=== PATIENT | female | born 1975 | race Caucasian/White ===

== ENCOUNTER 2016-12-01 17:17 | Inpatient (IN) | payer MEDICARE ==
[2016-12-01 18:31] LABS: ABSOLUTE LYMPHOCYTES (AUTO) 0.6 10^3/uL (0.5-4.7); ABSOLUTE MONOCYTES (AUTO) 0.6 10^3/uL (0.1-1.4); ABSOLUTE NEUT (AUTO) 9.7 10^3/uL (1.7-8.2); BASOPHILS % (AUTO) 0.3 % (0-2); HEMATOCRIT 35.2 % (36.0-47.0); HEMOGLOBIN 11.4 g/dL (12.0-15.5); LYMPHOCYTES % (AUTO) 5.1 % (13-45); MEAN CORPUSCULAR HEMOGLOBIN 25.9 pg (27.0-33.4); MEAN CORPUSCULAR HGB CONC 32.5 g/dL (32.0-36.0); MEAN CORPUSCULAR VOLUME 80 fl (80-97); MONOCYTES % (AUTO) 5.7 % (3-13); RED BLOOD COUNT 4.42 10^6/uL (3.72-5.28); RED CELL DISTRIBUTION WIDTH 17.1 % (11.5-14.0); SEGMENTED NEUTROPHILS % (AUTO) 88.9 % (42-78); WHITE BLOOD COUNT 10.9 10^3/uL (4.0-10.5)
[2016-12-01 18:36] LABS: ALANINE AMINOTRANSFERASE 37 U/L (9-52); ALBUMIN 4.1 g/dL (3.5-5.0); ALKALINE PHOSPHATASE 78 U/L (38-126); ANION GAP 13 (5-19); ASPARTATE AMINO TRANSFERASE 32 U/L (14-36); BILIRUBIN,TOTAL 0.5 mg/dL (0.2-1.3); BLOOD UREA NITROGEN 18 mg/dL (7-20); CALCIUM 9.5 mg/dL (8.4-10.2); CARBON DIOXIDE 25 mmol/L (22-30); CHLORIDE 108 mmol/L (98-107); CREATININE RESULT 0.58 mg/dL (0.52-1.25); GLUCOSE 128 mg/dL (75-110); SODIUM 145.7 mmol/L (137-145); TOTAL PROTEIN 7.1 g/dL (6.3-8.2)
[2016-12-01 18:37] LABS: ALCOHOL < 10 mg/dL (NONE DETECTED)
[2016-12-01 18:52] LABS: FREE T3 3.12 pg/mL (2.77-5.27)
[2016-12-01] MEDS ORDERED: RINGERS SOLUTION,LACTATED 1,000 ML IV PRN (19:00)
[2016-12-01 19:06] LABS: THYROID STIMULATING HORMONE 0.52 uIU/mL (0.47-4.68)
[2016-12-01 19:11] LABS: APPEARANCE,URINE SLIGHTLY-CLOUDY; BILIRUBIN,URINE NEGATIVE (NEGATIVE); GLUCOSE, URINE NEGATIVE (NEGATIVE); KETONES,URINE NEGATIVE (NEGATIVE); LEUKOCYTE ESTERASE,URINE NEGATIVE (NEGATIVE); NITRITE,URINE NEGATIVE (NEGATIVE); PROTEIN,URINE 100 mg/dL (NEGATIVE); URINE SPECIFIC GRAVITY 1.033; UROBILINOGEN,URINE NEGATIVE mg/dL (<2.0)
--- NOTE | 2016-12-01 19:11 | ER Document Report ---
ED General - General Chief Complaint: Altered Mental Status Stated Complaint: ALTERED MENTAL STATUS Notes: This is a 41-year-old female with history of polypharmacy and substance abuse who presents with altered mental status. She was found unkempt, covered in feces and combative. EMS administered Haldol and Versed. Further history is limited at this time as the patient has altered mental status and is nonverbal at this time. A review of her medical records reveals she was recently in the ER from 11/22-11/24 for similar complaints. TRAVEL OUTSIDE OF THE [place] IN LAST 30 DAYS: No - Related Data Allergies/Adverse Reactions: cinnamon [Cinnamon] Allergy (Unknown, Verified 11/23/16 03:38) Swelling of Throat Sulfa (Sulfonamide Antibiotics) Allergy (Unknown, Verified 11/23/16 03:38) Swelling of hands and/or feet levofloxacin [From Levaquin] Allergy (Verified 11/23/16 03:38) metformin HCl [From Glucophage] Allergy (Verified 11/23/16 03:38) codeine [Codeine] Adverse Reaction (Unknown, Verified 11/23/16 03:38) Migraine morphine [Morphine] Adverse Reaction (Unknown, Verified 11/23/16 03:38) VOMITING trazodone [Trazodone] Adverse Reaction (Unknown, Verified 11/23/16 03:38) Past Medical History - General Information source: [facility] Cannot obtain history due to: Altered mental status - Social History Smoking Status: Unknown if Ever Smoked Family History: Reviewed & Not Pertinent - Past Medical History Cardiac Medical History: Denies: Hx Coronary Artery Disease, Hx Heart Attack, Hx Hypertension Pulmonary Medical History: Reports: Hx Asthma, Hx Pneumonia - recently Denies: Hx Bronchitis, Hx COPD Neurological Medical History: Denies: Hx Cerebrovascular Accident, Hx Seizures GI Medical History: Denies: Hx Hepatitis, Hx Hiatal Hernia, Hx Ulcer Musculoskeltal Medical History: Reports Hx Arthritis - shoulders, right hips Infectious Medical History: Denies: Hx Hepatitis Past Surgical History: Denies: Hx Hysterectomy, Hx Mastectomy, Hx Open Heart Surgery, Hx Pacemaker - Immunizations Hx Diphtheria, Pertussis, Tetanus Vaccination: Yes Hx Pneumococcal Vaccination: 11/29/12 Review of Systems - Review of Systems -: Yes ROS unobtainable due to patient's medical condition Constitutional: denies: Fever Physical Exam - Vital signs Vitals: BP Pulse Ox 123/97 H 95 12/01/16 17:27 12/01/16 17:27 - General General appearance: Other - eyes closed, depressed respirations, sits upright with widened eyes and dilated pupils after sternal rub, no verbalizations, in 4 point restraint - HEENT Head: Normocephalic, Atraumatic Pupils: Dilated Mouth/Lips: Normal Mucous membranes: Dry Pharynx: Normal - Respiratory Respiratory status: Depressed respirations Breath sounds: Normal Chest palpation: Normal - Cardiovascular Rhythm: Regular, Tachycardia Murmur: No - Abdominal Inspection: Obese Tenderness: Nontender - Rectal Tenderness: No - no foreign body - Genitourinary Bimanuel exam: Other - no foreign body in vaginal vault - Back Back: Normal - Extremities General upper extremity: No: Edema General lower extremity: No: Edema Knee: Other - abrasions - Neurological Jolanta Coma Scale Eye Opening: To Pain Jolanta Coma Scale Verbal: None [place] Coma Scale Motor: Localizes to Pain - moves all 4 extremities Jolanta Coma Scale Total: 8 - Skin Skin Temperature: Warm Skin Moisture: Dry Skin Color: Normal - dirty Course - Re-evaluation Re-evalutation: 12/01/16 19:10 discussed with poison control 12/01/16 19:20 pt had negative head CT last week with similar presentation. Given history and presentation, overdose of cold medication or possibly Baclofen seems likely cause. 12/01/16 20:[address] Dai who will admit IMCU, - Vital Signs Vital signs: Temp Pulse Resp BP Pulse Ox 98.9 F 18 114/54 L 97 12/01/16 17:35 12/01/16 18:46 12/01/16 18:46 12/01/16 18:46 - Laboratory Result Diagrams: 12/01/16 17:39 12/01/16 17:39 Laboratory results interpreted by me: 12/01/16 12/01/16 12/01/16 17:39 17:39 18:43 WBC 10.9 H Hgb 11.4 L Hct 35.2 L MCH 25.9 L RDW 17.1 H Seg Neutrophils % 88.9 H Lymphocytes % 5.1 L Absolute Neutrophils 9.7 H Sodium 145.7 H Chloride 108 H Glucose 128 H Urine Protein 100 H Urine Ascorbic Acid 20 H Salicylates < 1.0 L Acetaminophen < 10 L Discharge - Discharge Clinical Impression: Polypharmacy, Adverse effect of sympathomimetics Altered mental status Qualifiers: Altered mental status type: stupor Qualified Code(s): R40.1 - Stupor Condition: Serious Disposition: ADMITTED INPATIENT Admitting Provider: [facility] Unit Admitted: [facility]
[2016-12-01 19:16] LABS: URINE BARBITURATES SCREEN NEGATIVE; URINE METHADONE SCREEN NEGATIVE; URINE PHENCYCLIDINE SCREEN NEGATIVE
[2016-12-01] MEDS ORDERED: ACETAMINOPHEN 325 MG TABLET PO PRN (20:39)
[2016-12-01] MEDS ORDERED: LORAZEPAM INJ 2 MG/1 ML VIAL IV PRN (20:39)
[2016-12-01] MEDS ORDERED: HYDRALAZINE HCL INJ/PF 20 MG/1 ML SDV IV PRN (20:39)
[2016-12-01] MEDS ORDERED: IPRATROPIUM/ALBUTEROL 0.5-2.5 MG/3 ML AMPUL NEB PRN (20:39)
[2016-12-01] MEDS ORDERED: ONDANSETRON HCL INJ/PF 4 MG/2 ML SDV IV PRN (20:39)
[2016-12-01] MEDS ORDERED: METOPROLOL TARTRATE PF/INJ 5 MG/5 ML SDV IV PRN (20:44)
[2016-12-01] MEDS ORDERED: NORMAL SALINE 1000 ML 1,000 ML IV SCH (20:45)
[2016-12-01] MEDS ORDERED: HEPARIN SOD (PORCINE) 5,000 UNIT/ML 1 ML SYRINGE SUBCUT SCH (22:00)
[2016-12-01] MEDS: METOPROLOL TARTRATE PF/INJ 5 MG/5 ML SDV IV PRN (22:20)
[2016-12-01] MEDS ORDERED: LORAZEPAM INJ 2 MG/1 ML VIAL ONE (23:45)
[2016-12-02] MEDS ORDERED: LORAZEPAM INJ 2 MG/1 ML VIAL IV ONE (00:15)
[2016-12-02] MEDS: LORAZEPAM INJ 2 MG/1 ML VIAL IV PRN ×3 (02:08→07:50)
[2016-12-02] MEDS ORDERED: MORPHINE SULFATE 10 MG/ML INJ ONE (03:46)
[2016-12-02] MEDS ORDERED: MORPHINE SULFATE 10 MG/ML INJ IV ONE (03:49)
--- NOTE | 2016-12-02 04:01 | PDOC H&P ---
History of Present Illness Admission Date/PCP: 12/01/16 20:40 Patient complains of: Altered mental status History of Present Illness: KALIN LEMA is a 41 year old female with a past medical history of polypharmacy polysubstance abuse with prior overdose found with altered mental status nonverbal disheveled covered in feces and combative by EMS. She is found with several empty bottles of medication including Lyrica and baclofen Requip and Sudafed. She required sedation by EMS with Versed and Haldol 5 mg IV each. She is persistently combative in the emergency room with uncontrolled hypertension and tachycardia requiring 4 point restraints. Poison control recommending supportive care avoiding agents prolonging QT interval and is referred to the hospitalist for admission. No further history is available from patient or record. Past Medical History Cardiac Medical History: Denies: Coronary Artery Disease, Myocardial Infarction, Hypertension Pulmonary Medical History: Reports: Asthma, Pneumonia - recently Denies: Bronchitis, Chronic Obstructive Pulmonary Disease (COPD) Neurological Medical History: Denies: Seizures Endocrine Medical History: Reports: Obesity GI Medical History: Denies: Hepatitis, Hiatal Hernia Musculoskeltal Medical History: Reports: Arthritis - shoulders, right hips Psychiatric Medical History: Reports: Bipolar Disorder Hematology: Denies: Anemia, Sickle Cell Disease Past Surgical History Past Surgical History: Denies: Amputation, Hysterectomy, Mastectomy, Pacemaker Social History Smoking Status: Unknown if Ever Smoked - Advance Directive Resuscitation Status: Full Code Family History Family History: Reviewed & Not Pertinent, Other - Unavailable patient is aphasic Parental Family History Reviewed: Yes Children Family History Reviewed: Yes Sibling(s) Family History Reviewed.: Yes Medication/Allergy Home Medications: Baclofen [Baclofen 20 mg Tablet] 20 mg PO Q4 12/01/16 Diclofenac Sodium [Voltaren] 4 inch TOP QIDP PRN 12/01/16 Duloxetine HCl [Cymbalta] 60 mg PO Q12 12/01/16 Eszopiclone [Lunesta] 6 mg PO QHS 12/01/16 Fentanyl [Duragesic 12 Mcg/Hr Transdermal Patch] 12 mcg TD Q3DAYS 12/01/16 Hydromorphone HCl 4 mg PO Q12 12/01/16 Ibuprofen [Motrin 800 mg Tablet] 800 mg PO Q12 12/01/16 Meloxicam [Mobic 15 mg Tablet] 30 mg PO Q4 12/01/16 Pregabalin [Lyrica 100 mg Capsule] 200 mg PO Q8 12/01/16 Propranolol HCl [Propranolol HCl ER] 80 mg PO DAILY 12/01/16 Risperidone 1 mg PO QHS 12/01/16 Ropinirole HCl [Requip] 1 mg PO QID 12/01/16 Tizanidine HCl [Zanaflex 4 mg Tablet] 4 mg PO Q6 12/01/16 Allergies/Adverse Reactions: cinnamon [Cinnamon] Allergy (Unknown, Verified 11/23/16 03:38) Swelling of Throat Sulfa (Sulfonamide Antibiotics) Allergy (Unknown, Verified 11/23/16 03:38) Swelling of hands and/or feet levofloxacin [From Levaquin] Allergy (Verified 11/23/16 03:38) metformin HCl [From Glucophage] Allergy (Verified 11/23/16 03:38) codeine [Codeine] Adverse Reaction (Unknown, Verified 11/23/16 03:38) Migraine morphine [Morphine] Adverse Reaction (Unknown, Verified 11/23/16 03:38) VOMITING trazodone [Trazodone] Adverse Reaction (Unknown, Verified 11/23/16 03:38) Review of Systems ROS unobtainable: Due to mental status Physical Exam Vital Signs: Temp Pulse Resp BP Pulse Ox 98.9 F 18 114/54 L 97 12/01/16 17:35 12/01/16 18:46 12/01/16 18:46 12/01/16 18:46 Intake & Output 11/30/16 12/01/16 12/02/16 11:59 11:59 11:59 Weight 113.6 kg General appearance: PRESENT: disheveled, obese, severe distress. ABSENT: cooperative Head exam: PRESENT: atraumatic, normocephalic Eye exam: PRESENT: conjunctiva pink, EOMI, PERRLA. ABSENT: scleral icterus Ear exam: PRESENT: normal external ear exam Mouth exam: PRESENT: moist, tongue midline Neck exam: ABSENT: carotid bruit, JVD, lymphadenopathy, thyromegaly Respiratory exam: PRESENT: clear to auscultation milo. ABSENT: rales, rhonchi, wheezes Cardiovascular exam: PRESENT: RRR, tachycardia. ABSENT: diastolic murmur, rubs , systolic murmur Pulses: PRESENT: normal dorsalis pedis pul GI/Abdominal exam: PRESENT: normal bowel sounds, soft. ABSENT: distended, guarding, mass, organolmegaly, rebound, tenderness Rectal exam: PRESENT: deferred Extremities exam: PRESENT: full ROM. ABSENT: calf tenderness, clubbing, pedal edema Neurological exam: PRESENT: altered, CN II-XII grossly intact, aphasic. ABSENT : oriented to time, oriented to situation, reflexes normal, abnormal gait, ataxia Psychiatric exam: PRESENT: agitated, anxious, manic, unusual affect Focused psych exam: PRESENT: internal stimuli, psychomotor agitation, restlessness Skin exam: PRESENT: dry, intact, warm. 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 When necessary benzodiazepine avoiding agents prolonging QT interval, repeat labs CBC chem 12 and INR. Consult mental health (2) Altered mental status Qualifiers: Altered mental status type: stupor Qualified Code(s): R40.1 - Stupor Is this a current diagnosis for this admission?: YesPlan: Please see #1 (3) Polypharmacy Is this a current diagnosis for this admission?: YesPlan: Holding meds with supportive care with when necessary benzodiazepine (4) Sympathomimetic adverse reaction Is this a current diagnosis for this admission?: YesPlan: Please see #1 - Time Time Spent: 30 to 50 Minutes
[2016-12-02] MEDS ORDERED: OLANZAPINE INJ/PF 10 MG SDV IM ONE (04:26)
[2016-12-02 06:57] LABS: ABSOLUTE LYMPHOCYTES (AUTO) 1.4 10^3/uL (0.5-4.7); ABSOLUTE MONOCYTES (AUTO) 1.2 10^3/uL (0.1-1.4); ABSOLUTE NEUT (AUTO) 7.4 10^3/uL (1.7-8.2); BASOPHILS % (AUTO) 0.1 % (0-2); HEMATOCRIT 34.1 % (36.0-47.0); HEMOGLOBIN 11.1 g/dL (12.0-15.5); HGB HCT DIFFERENCE -0.8; LYMPHOCYTES % (AUTO) 14.3 % (13-45); MEAN CORPUSCULAR HEMOGLOBIN 25.8 pg (27.0-33.4); MEAN CORPUSCULAR HGB CONC 32.6 g/dL (32.0-36.0); MEAN CORPUSCULAR VOLUME 79 fl (80-97); MONOCYTES % (AUTO) 12.3 % (3-13); RED BLOOD COUNT 4.29 10^6/uL (3.72-5.28); RED CELL DISTRIBUTION WIDTH 17.5 % (11.5-14.0); SEGMENTED NEUTROPHILS % (AUTO) 73.3 % (42-78)
[2016-12-02] MEDS: METOPROLOL TARTRATE PF/INJ 5 MG/5 ML SDV IV PRN (06:59)
[2016-12-02 07:13] LABS: PROTHROMBIN TIME 13.3 SEC (11.4-15.4)
[2016-12-02 07:14] LABS: ALANINE AMINOTRANSFERASE 43 U/L (9-52); ALBUMIN 3.7 g/dL (3.5-5.0); ALKALINE PHOSPHATASE 84 U/L (38-126); ANION GAP 12 (5-19); ASPARTATE AMINO TRANSFERASE 58 U/L (14-36); BILIRUBIN,TOTAL 0.7 mg/dL (0.2-1.3); BLOOD UREA NITROGEN 16 mg/dL (7-20); CALCIUM 9.3 mg/dL (8.4-10.2); CARBON DIOXIDE 26 mmol/L (22-30); CHLORIDE 108 mmol/L (98-107); CREATININE RESULT 0.52 mg/dL (0.52-1.25); GLUCOSE 97 mg/dL (75-110); POTASSIUM 3.7 mmol/L (3.6-5.0); SODIUM 145.9 mmol/L (137-145); TOTAL PROTEIN 6.7 g/dL (6.3-8.2)
[2016-12-02] MEDS ORDERED: (PENDING PHARMACY ID) (Propranolol Hcl [Propranolol Hcl Er] 80 MG) PO SCH ×2 (09:00→10:00)
[2016-12-02] MEDS ORDERED: RINGERS SOLUTION,LACTATED 2,000 ML IV ONE (09:12)
[2016-12-02] MEDS: DOCUSATE SODIUM 100 MG CAPSULE PO SCH ×2 (10:16→18:22)
[2016-12-02] MEDS: BACLOFEN 20 MG TABLET PO SCH ×2 (10:16→23:32)
[2016-12-02] MEDS: ALPRAZOLAM 0.5 MG TABLET PO SCH ×2 (10:16→23:32)
[2016-12-02] MEDS: HEPARIN SOD (PORCINE) 5,000 UNIT/ML 1 ML SYRINGE SUBCUT SCH (10:17)
[2016-12-02] MEDS ORDERED: BACLOFEN 20 MG TABLET PO SCH (12:00)
[2016-12-02] MEDS: CLONIDINE HCL 0.1 MG TABLET PO SCH ×2 (13:09→18:22)
[2016-12-02] MEDS: LACTULOSE SYRUP 20 GM/30 ML UDCUP PO SCH ×2 (13:09→18:22)
[2016-12-02] MEDS ORDERED: PREGABALIN 100 MG CAPSULE PO SCH (14:00)
--- NOTE | 2016-12-02 16:05 | EKG REPORT ---
SEVERITY:- OTHERWISE NORMAL ECG - SINUS TACHYCARDIA : Confirmed by: Porsche Kebede 02-Dec-2016 16:03:48
[2016-12-02] MEDS: NORMAL SALINE 1000 ML 1,000 ML IV PRN (17:00)
--- NOTE | 2016-12-02 17:26 | PSYCHOLOGICAL NOTE ---
Psych Note - Psych Note Psych Note: The patient has a past medical history of polypharmacy polysubstance abuse with prior overdose found with altered mental status nonverbal disheveled covered in feces and combative by EMS. She is found with several empty bottles of medication including Lyrica and baclofen Requip and Sudafed. Clinician attempted to conduct psychiatric evaluation on 2 separate occasions; both were unsuccessful. Patient was able to identify that she was at [facility] however was unable to provide any other information. She was able to verbalize she was not comfortable but did not remember what she took. Clinician notes that upon second attempt patient was alert and communicating with her sitter however upon clinician's entrance into the room patient acted as though she was asleep. Patient sitter disclosed the patient stated she had taken 7 baclofen and that she had scared her son. Polysubstance; per history Impression\plan: The patient will have to be reevaluated at a later time. Patient is demonstrating an unwillingness to communicate with clinician at this time. There is not enough information to determine disposition.
--- NOTE | 2016-12-02 23:30 | PDOC PROGRESS REPORT ---
Subjective Progress Note for:: 12/02/16 Subjective:: Patient will not respond to me when I visited her. She attempts to continue to get out of bed Physical Exam Vital Signs: Temp Pulse Resp BP Pulse Ox 98.2 F 115 H 26 H 146/91 H 97 12/02/16 22:45 12/02/16 08:00 12/02/16 22:45 12/02/16 22:45 12/02/16 20:01 Intake & Output 12/01/16 12/02/16 12/03/16 06:59 06:59 06:59 Intake Total 1000 Output Total 700 Balance 300 Weight 113.6 kg Exam: General: Awake, uncooperative, no acute respiratory distress HEENT: AT/NC, PERRL with 5 mm pupils, oropharynx is dry, chapped lips, pink, no scleral icterus, no conjunctival injection Neck: No JVD, trachea midline Chest: Clear to auscultation bilaterally, no wheezes rhonchi or rales CV: Regular rate and rhythm, normal S1 and S2, no murmur, rub, or gallop Abdomen: Soft, nontender to palpation, nondistended, diminished bowel sounds; no rebound, rigidity, or guarding Extremities: No cyanosis, clubbing or edema Neuro: Cranial nerves II through XII are grossly intact without focal deficits Psych: Patient continues to be uncooperative Results Laboratory Results: 12/02/16 06:44 12/02/16 06:44 12/02/16 12/02/16 12/02/16 06:44 06:44 06:44 WBC 10.0 RBC 4.29 Hgb 11.1 L Hct 34.1 L MCV 79 L MCH 25.8 L MCHC 32.6 RDW 17.5 H Plt Count 224 Seg Neutrophils % 73.3 Lymphocytes % 14.3 Monocytes % 12.3 Eosinophils % 0.0 Basophils % 0.1 Absolute Neutrophils 7.4 Absolute Lymphocytes 1.4 Absolute Monocytes 1.2 Absolute Eosinophils 0.0 Absolute Basophils 0.0 Sodium 145.9 H Potassium 3.7 Chloride 108 H Carbon Dioxide 26 Anion Gap 12 BUN 16 Creatinine 0.52 Est GFR ( Amer) > 60 Est GFR (Non-Af Amer) > 60 Glucose 97 Calcium 9.3 Total Bilirubin 0.7 AST 58 H ALT 43 Alkaline Phosphatase 84 Total Protein 6.7 Albumin 3.7 Serum HCG, Qual NEGATIVE 12/02/16 06:44 Creatine Kinase 1292 H Assessment & Plan - Diagnosis (1) Altered mental status Qualifiers: Altered mental status type: stupor Qualified Code(s): R40.1 - Stupor Is this a current diagnosis for this admission?: YesPlan: Likely secondary to polysubstance overdose. Patient currently a danger to herself. 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 Patient apparently has been known to crush and snort Sudafed. I did discuss this case with the poison control. At this time the recommend benzodiazepines for her symptomatology as well as ongoing cardiac monitoring and are in agreement with standard of care currently being given to patient. Will check a CPK. Recheck Tylenol level. (3) Benzodiazepine dependence, continuous Is this a current diagnosis for this admission?: YesPlan: We'll resume low-dose Xanax to prevent seizure. Ativan when necessary (4) chronic baclofen usage Is this a current diagnosis for this admission?: YesPlan: We'll resume low-dose baclofen to prevent seizure. (5) Morbid obesity Qualifiers: Obesity type: due to excess calories Qualified Code(s): E66.01 - Morbid (severe) obesity due to excess calories Is this a current diagnosis for this admission?: Yes (6) Hypertension Qualifiers: Hypertension type: unspecified secondary hypertension Qualified Code (s): I15.9 - Secondary hypertension, unspecified; I15 - Secondary hypertension Is this a current diagnosis for this admission?: YesPlan: Patient on propanolol at home and will resume this here. Will place metoprolol IV every 12 as currently she is unable to take by mouth. Will place clonidine for withdrawal as well as for her blood pressure. (7) Polypharmacy Is this a current diagnosis for this admission?: Yes (8) chronic opiate dependency Is this a current diagnosis for this admission?: YesPlan: We'll place patient on clonidine scheduled. Patient's toxicology screen is negative for opiates. She does have a standing prescription however for Dilaudid for by mouth every 12. She also has been prescribed fentanyl the past. - Time Time Spent with patient: 35 or more minutes Medications reviewed and adjusted accordingly: Yes Anticipated discharge: Other - Psychiatric facility
[2016-12-03] MEDS: CLONIDINE HCL 0.1 MG TABLET PO SCH ×4 (00:32→21:41)
[2016-12-03] MEDS: LACTULOSE SYRUP 20 GM/30 ML UDCUP PO SCH ×3 (00:32→12:35)
[2016-12-03] MEDS: BACLOFEN 20 MG TABLET PO SCH (06:11)
[2016-12-03] MEDS: ALPRAZOLAM 0.5 MG TABLET PO SCH ×2 (06:15→14:04)
[2016-12-03 07:07] LABS: ABSOLUTE EOSINOPHILS # (AUTO) 0.1 10^3/uL (0.0-0.6); ABSOLUTE LYMPHOCYTES (AUTO) 1.6 10^3/uL (0.5-4.7); ABSOLUTE MONOCYTES (AUTO) 0.6 10^3/uL (0.1-1.4); BASOPHILS % (AUTO) 0.6 % (0-2); EOSINOPHILS % (AUTO) 2.2 % (0-6); HEMATOCRIT 33.6 % (36.0-47.0); HEMOGLOBIN 11.1 g/dL (12.0-15.5); HGB HCT DIFFERENCE -0.3; LYMPHOCYTES % (AUTO) 30.7 % (13-45); MEAN CORPUSCULAR HEMOGLOBIN 26.3 pg (27.0-33.4); MEAN CORPUSCULAR HGB CONC 33.1 g/dL (32.0-36.0); MEAN CORPUSCULAR VOLUME 80 fl (80-97); RED BLOOD COUNT 4.23 10^6/uL (3.72-5.28); SEGMENTED NEUTROPHILS % (AUTO) 55.5 % (42-78); WHITE BLOOD COUNT 5.3 10^3/uL (4.0-10.5)
[2016-12-03 07:29] LABS: ANION GAP 9 (5-19); BLOOD UREA NITROGEN 14 mg/dL (7-20); CALCIUM 8.7 mg/dL (8.4-10.2); CARBON DIOXIDE 25 mmol/L (22-30); CHLORIDE 107 mmol/L (98-107); CREATININE RESULT 0.54 mg/dL (0.52-1.25); GLUCOSE 76 mg/dL (75-110); POTASSIUM 3.4 mmol/L (3.6-5.0); SODIUM 141.1 mmol/L (137-145)
[2016-12-03 08:13] LABS: ASPARTATE AMINO TRANSFERASE 79 U/L (14-36); CREATINE KINASE 1131 U/L (30-135)
[2016-12-03] MEDS: HEPARIN SOD (PORCINE) 5,000 UNIT/ML 1 ML SYRINGE SUBCUT SCH ×2 (09:48→18:47)
[2016-12-03] MEDS: DOCUSATE SODIUM 100 MG CAPSULE PO SCH ×2 (09:48→18:47)
[2016-12-03] MEDS: PROPRANOLOL HCL 40 MG TABLET PO SCH ×2 (09:48→21:41)
[2016-12-03] MEDS: NORMAL SALINE 1000 ML 1,000 ML IV PRN ×2 (13:00→16:19)
[2016-12-03] MEDS ORDERED: BACLOFEN 10 MG TABLET PO SCH (14:00)
[2016-12-03] MEDS ORDERED: LORAZEPAM INJ 2 MG/1 ML VIAL IV PRN (17:32)
[2016-12-03] MEDS ORDERED: ALPRAZOLAM 0.5 MG TABLET PO PRN (17:33)
[2016-12-03] MEDS ORDERED: NORMAL SALINE 1000 ML 1,000 ML IV PRN (17:34)
--- NOTE | 2016-12-03 17:48 | PDOC PROGRESS REPORT ---
Subjective Progress Note for:: 12/03/16 Subjective:: Patient reports to me that she was not feeling well and had a cold and therefore took some baclofen of undetermined quantity of after having a fight with her son. Patient reports to me that she feels that "God put medicines on this world make us feel better." Denies SI or HI.Patient denies chest pain, shortness of breath, nausea, vomiting, fevers, chills, diarrhea, headache, new onset weakness. Patient reports that she is unable to have a bowel movement because her Cota is in. And that the sensation does give her some slight abdominal pain. Patient reports that she takes chronic narcotics for her back pain. Physical Exam Vital Signs: Temp Pulse Resp BP Pulse Ox 97.4 F 66 14 106/72 100 12/03/16 13:21 12/03/16 14:37 12/03/16 14:37 12/03/16 14:00 12/03/16 14:37 Intake & Output 12/02/16 12/03/16 12/04/16 06:59 06:59 06:59 Intake Total 1100 Output Total 1200 750 Balance -100 -750 Weight 113.6 kg Exam: General: Awake alert and oriented x3, no acute respiratory distress HEENT: AT/NC, PERRL, EOMI, oropharynx is moist, pink, no scleral icterus, no conjunctival injection Neck: No JVD, trachea midline Chest: Clear to auscultation bilaterally, no wheezes rhonchi or rales CV: Regular rate and rhythm, normal S1 and S2, no murmur, rub, or gallop Abdomen: Soft, nontender to palpation, nondistended, active bowel sounds; no rebound, rigidity, or guarding Extremities: No cyanosis, clubbing or edema Neuro: Cranial nerves II through XII are grossly intact without focal deficits; awake alert and orientedx3 Psych: Normal mood and affect Results Laboratory Results: 12/03/16 06:56 12/03/16 06:56 12/03/16 12/03/16 12/03/16 06:56 06:56 06:56 WBC 5.3 RBC 4.23 Hgb 11.1 L Hct 33.6 L MCV 80 MCH 26.3 L MCHC 33.1 RDW 18.0 H Plt Count 163 Seg Neutrophils % 55.5 Lymphocytes % 30.7 Monocytes % 11.0 Eosinophils % 2.2 Basophils % 0.6 Absolute Neutrophils 3.0 Absolute Lymphocytes 1.6 Absolute Monocytes 0.6 Absolute Eosinophils 0.1 Absolute Basophils 0.0 Sodium 141.1 Potassium 3.4 L Chloride 107 Carbon Dioxide 25 Anion Gap 9 BUN 14 Creatinine 0.54 Est GFR ( Amer) > 60 Est GFR (Non-Af Amer) > 60 Glucose 76 Calcium 8.7 AST 79 H 12/02/16 12/03/16 06:44 06:56 Creatine Kinase 1292 H 1131 H Impressions: Head CT 12/03/16 00:00 IMPRESSION: NORMAL BRAIN CT WITHOUT CONTRAST. Assessment & Plan - Diagnosis (1) Altered mental status Qualifiers: Altered mental status type: stupor Qualified Code(s): R40.1 - Stupor Is this a current diagnosis for this admission?: YesPlan: Resolved secondary to possible intentional overdose. Medically patient stable for transfer to psychiatric facility. 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 Patient however was found with multiple empty bottles which would account for her mixed picture which looked more like a sympathomimetic overdose. Baclofen can have some of these symptoms, but feel this was likely a mixed picture. Intense still appears to be unknown for me. Will consult psychology. (3) Benzodiazepine dependence, continuous Is this a current diagnosis for this admission?: YesPlan: Continue low-dose Xanax and when necessary Ativan. (4) chronic baclofen usage Is this a current diagnosis for this admission?: YesPlan: Continue low-dose baclofen twice a day. (5) Hypertension Qualifiers: Hypertension type: unspecified secondary hypertension Qualified Code (s): I15.9 - Secondary hypertension, unspecified; I15 - Secondary hypertension Is this a current diagnosis for this admission?: YesPlan: Continue propanolol and clonidine. (6) Polypharmacy Is this a current diagnosis for this admission?: Yes (7) chronic opiate dependency Is this a current diagnosis for this admission?: YesPlan: Continue clonidine for withdrawal. Lidoderm for chronic pain. (8) History of Cesilia-en-Y gastric bypass Is this a current diagnosis for this admission?: YesPlan: Place patient on protein supplementation and multivitamins. (9) Constipation Qualifiers: Constipation type: drug induced constipation Qualified Code(s): K59.03 - Drug induced constipation Is this a current diagnosis for this admission?: YesPlan: We'll continue to give patient cathartics for bowel movement. Will stop lactulose. (10) Morbid obesity Qualifiers: Obesity type: due to excess calories Qualified Code(s): E66.01 - Morbid (severe) obesity due to excess calories Is this a current diagnosis for this admission?: Yes (11) Rhabdomyolysis Qualifiers: Rhabdomyolysis type: non-traumatic Qualified Code(s): M62.82 - Rhabdomyolysis Is this a current diagnosis for this admission?: YesPlan: Secondary to straining against her restraints most likely but could also be from her polysubstance overdose. Continue IV fluids at this time. Will stop in the morning if she is eating and drinking well. - Time Time Spent with patient: 35 or more minutes Medications reviewed and adjusted accordingly: Yes Anticipated discharge: Other - Psychiatric facility Within: when bed available
[2016-12-03] MEDS: FERROUS SULFATE 325 MG TABLET PO SCH (18:47)
[2016-12-03] MEDS ORDERED: POTASSIUM CHLORIDE 10 MEQ TABLET.SA PO ONE (19:00)
[2016-12-03] MEDS: FAMOTIDINE 20 MG TABLET PO SCH (21:42)
[2016-12-03] MEDS: BACLOFEN 10 MG TABLET PO SCH (21:42)
[2016-12-03] MEDS: CALCIUM CARBONATE 500 MG TAB.CHEW PO SCH (21:42)
[2016-12-04] MEDS: HEPARIN SOD (PORCINE) 5,000 UNIT/ML 1 ML SYRINGE SUBCUT SCH ×3 (02:53→18:34)
[2016-12-04] MEDS: MULTIVITAMINS W-IRON TABLET, CHEWABLE PO SCH ×3 (05:19→18:34)
[2016-12-04] MEDS: CLONIDINE HCL 0.1 MG TABLET PO SCH ×2 (05:20→16:06)
[2016-12-04 06:56] LABS: ABSOLUTE EOSINOPHILS # (AUTO) 0.2 10^3/uL (0.0-0.6); ABSOLUTE LYMPHOCYTES (AUTO) 0.9 10^3/uL (0.5-4.7); ABSOLUTE MONOCYTES (AUTO) 0.5 10^3/uL (0.1-1.4); ABSOLUTE NEUT (AUTO) 3.4 10^3/uL (1.7-8.2); BASOPHILS % (AUTO) 0.5 % (0-2); EOSINOPHILS % (AUTO) 4.1 % (0-6); HEMATOCRIT 31.3 % (36.0-47.0); HEMOGLOBIN 10.2 g/dL (12.0-15.5); HGB HCT DIFFERENCE -0.7; LYMPHOCYTES % (AUTO) 18.3 % (13-45); MEAN CORPUSCULAR HEMOGLOBIN 26.2 pg (27.0-33.4); MEAN CORPUSCULAR HGB CONC 32.5 g/dL (32.0-36.0); MEAN CORPUSCULAR VOLUME 81 fl (80-97); MONOCYTES % (AUTO) 10.5 % (3-13); RED BLOOD COUNT 3.88 10^6/uL (3.72-5.28); RED CELL DISTRIBUTION WIDTH 17.6 % (11.5-14.0); SEGMENTED NEUTROPHILS % (AUTO) 66.6 % (42-78); WHITE BLOOD COUNT 5.1 10^3/uL (4.0-10.5)
[2016-12-04 07:04] LABS: ANION GAP 8 (5-19); BLOOD UREA NITROGEN 11 mg/dL (7-20); CALCIUM 8.1 mg/dL (8.4-10.2); CARBON DIOXIDE 26 mmol/L (22-30); CHLORIDE 107 mmol/L (98-107); CREATININE RESULT 0.53 mg/dL (0.52-1.25); GLUCOSE 78 mg/dL (75-110); POTASSIUM 3.8 mmol/L (3.6-5.0); SODIUM 140.5 mmol/L (137-145)
[2016-12-04] MEDS: FERROUS SULFATE 325 MG TABLET PO SCH ×2 (08:22→18:34)
[2016-12-04] MEDS: CALCIUM CARBONATE 500 MG TAB.CHEW PO SCH ×3 (08:22→16:06)
[2016-12-04] MEDS: DOCUSATE SODIUM 100 MG CAPSULE PO SCH ×2 (09:45→18:34)
[2016-12-04] MEDS: FAMOTIDINE 20 MG TABLET PO SCH (09:47)
[2016-12-04] MEDS: BACLOFEN 10 MG TABLET PO SCH (09:47)
[2016-12-04] MEDS ORDERED: CYANOCOBALAMIN (VITAMIN B-12) 1,000 MCG TABLET PO SCH (10:00)
[2016-12-04] MEDS ORDERED: CHOLECALCIFEROL (D3) 1,000 UNIT TABLET PO SCH (10:00)
[2016-12-04] MEDS ORDERED: POLYETHYLENE GLYCOL 3350 POWDER 17 GM/1 PACKET PO SCH (10:00)
[2016-12-04] MEDS ORDERED: LIDOCAINE 5% (700 MG) TRANSDERMAL ADH..PATCH TP SCH (10:00)
[2016-12-04] MEDS ORDERED: PROPRANOLOL HCL 40 MG TABLET PO ONE (11:00)
[2016-12-04] MEDS ORDERED: PROPRANOLOL HCL 20 MG TABLET PO ONE (11:30)
[2016-12-04 18:45] VITALS: BP 128/64
[2016-12-04] MEDS ORDERED: PROPRANOLOL HCL 40 MG TABLET PO SCH (22:00)
[2016-12-04] MEDS ORDERED: PROPRANOLOL HCL 20 MG TABLET PO SCH (22:00)
--- NOTE | 2016-12-05 14:52 | PDOC DISCHARGE SUMMARY ---
General - Admit/Disc Date/PCP Admission Date/Primary Care Provider: 12/01/16 20:40 Discharge Date: 12/04/16 - Discharge Diagnosis (1) Altered mental status Is this a current diagnosis for this admission?: Yes (2) SHIELD INST[employer]ER stimulant overdose Is this a current diagnosis for this admission?: Yes (3) Benzodiazepine dependence, continuous Is this a current diagnosis for this admission?: Yes (4) chronic baclofen usage Is this a current diagnosis for this admission?: Yes (5) Hypertension Is this a current diagnosis for this admission?: Yes (6) Polypharmacy Is this a current diagnosis for this admission?: Yes (7) chronic opiate dependency Is this a current diagnosis for this admission?: Yes (8) Constipation Is this a current diagnosis for this admission?: Yes (9) Rhabdomyolysis Is this a current diagnosis for this admission?: Yes (10) Morbid obesity Is this a current diagnosis for this admission?: Yes (11) History of Cesilia-en-Y gastric bypass Is this a current diagnosis for this admission?: Yes - Additional Information Resuscitation Status: Full Code Discharge Diet: Other (Comments) - per bariatric surgeon Discharge Activity: Activity As Tolerated Home Medications: Diclofenac Sodium [Voltaren] 4 inch TOP QIDP PRN 12/01/16 Duloxetine HCl [Cymbalta] 60 mg PO Q12 12/01/16 Eszopiclone [Lunesta] 6 mg PO QHS 12/01/16 Pregabalin [Lyrica 100 mg Capsule] 200 mg PO Q8 12/01/16 Propranolol HCl [Propranolol HCl ER] 80 mg PO DAILY 12/01/16 Risperidone 1 mg PO QHS 12/01/16 Ropinirole HCl [Requip] 1 mg PO QID 12/01/16 Baclofen [Baclofen 10 mg Tablet] 10 mg PO Q12 tablet 12/04/16 Docusate Sodium [Colace 100 mg Capsule] 100 mg PO BID capsule 12/04/16 History of Present Illness History of Present Illness: See H&P for full history of present illness Hospital Course Hospital Course: After 24 hours of conservative management and treatment with benzodiazepines for agitation, patient was found to be in rhabdomyolysis mildly and her mentation improved. Patient had apparently taken 7 or more baclofen. Patient admits to a history of amphetamine abuse prior to her . Patient admits to inappropriate usage (not taking as directed) her multiple medications including baclofen, Dilaudid, and Xanax. I discussed with patient that she should come off of her chronic pain and benzodiazepine-type medications under the care of her physician. While in the hospital, patient received no narcotic pain medication and was on clonidine with good effect. She was evaluated by psychology and was felt not to be a danger to herself. Patient was discharged in stable condition Physical Exam Vital Signs: Temp Pulse Resp BP Pulse Ox 98.1 F 71 16 128/64 H 97 12/04/16 18:43 12/04/16 18:43 12/04/16 18:43 12/04/16 18:43 12/04/16 18:43 Intake & Output 12/04/16 12/05/16 12/06/16 06:59 06:59 06:59 Intake Total 780 1124 Output Total 750 Balance 30 1124 Weight 136.3 kg Exam: General: Awake alert and oriented 3, no acute distress HEENT: AT/NC, PERRL, EOMI, oropharynx is moist, pink, no scleral icterus, no conjunctival injection Neck: No JVD, trachea midline Chest: Clear to auscultation bilaterally CV: Regular rate and rhythm, normal S1 and S2, no murmur, rub, or gallop Abdomen: Obese, Soft, nontender to palpation, nondistended, active bowel sounds ; no rebound, rigidity, or guarding Extremities: No cyanosis, clubbing or edema Neuro: Cranial nerves II through XII are grossly intact without focal deficits; awake alert and oriented 3 Psych: Normal mood and affect, fair to poor insight Results Laboratory Results: 12/04/16 06:08 12/04/16 06:08 12/02/16 12/03/16 12/04/16 06:44 06:56 06:08 Creatine Kinase 1292 H 1131 H 1251 H Impressions: Head CT 12/03/16 00:00 IMPRESSION: NORMAL BRAIN CT WITHOUT CONTRAST. Qualifiers PATEINT BEING DISCHARGED WITH ANY OF THE FOLLOWING DIAGNOSIS?: No Plan Time Spent: Greater than 30 Minutes
--- NOTE | 2016-12-06 09:58 | PSYCHOLOGICAL NOTE ---
Psych Note - Psych Note Psych Note: Re-evaluation The patient has a past medical history of polypharmacy polysubstance abuse with prior overdose found with altered mental status nonverbal disheveled covered in feces and combative by EMS. She is found with several empty bottles of medication including Lyrica and baclofen Requip and Sudafed. Patient disclose that she was having an argument with her son , however she did not take medication because of that. She continued to disclose that she " hates being in pain" and " has a high tolerance and morel taken that much Baclofen in the past with no problem" she continued to disclose that the only medication she has an issue with is her read it and that looking back on the symptoms people say she had she think she might have accidentally added a Requip to the Baclofen she took. Patient denies suicidal ideation stating she was just taking medication because she was in pain and she has no desire to . Patient is alert and oriented to person, place, time and Circumstance. Mood is euthymic with congruent affect. Patient denies suicidal and homicidal ideation. Patient denies auditory and visual hallucinations; no delusions are noted . Thought processes is logical, organized and linear. Conversational speech is within normal rate, tone, and prosody. Eye contact was well-maintained. Intellectual abilities appear to be within normal range. Attention and concentration are good. Insight, judgment, impulse control are fair. Polysubstance abuse per history Impression\\ plan: patient is psychiatrically clear for discharge. Patient denies suicidal homicidal ideation. Patient disclosed it was accidental overdose stating she previously taken that much Baclofen with no issues. After chart review and speaking with patient, indications point to substance abuse; increased tolerance, belief that she needs pain medication , and patient report previous addiction to different pain medication. Patient is psychiatrically cleared for discharge attending physician is in agreement with recommendations and disposition.
== END 2016-12-04 20:30 | disposition home or self-care (01) | DRG 918 ==
LOC: ER 17:17 → EH 20:40 → 5 12-03 15:30
PROVIDERS: ADMIT Internal Medicine; ATTEND Internal Medicine
PROC: 3E0F73Z Introduction of Anti-inflammatory into Respiratory Tract, Via Natural or Artificial Opening (ICD-10-PCS; principal; 2016-12-02)
DX: T42.4X4A Poisoning by benzodiazepines, undetermined, initial encounter (principal); F11.20 Opioid dependence, uncomplicated; M62.82 Rhabdomyolysis; Z68.42 Body mass index [BMI] 45.0-49.9, adult; T42.8X4A Poisoning by antiparkinsonism drugs and other central muscle-tone depressants, undetermined, initial encounter; T44.90 Poisoning by, adverse effect of and underdosing of unspecified drugs primarily affecting the autonomic nervous system; R41.82 Altered mental status, unspecified; J45.909 Unspecified asthma, uncomplicated; M13.812 Other specified arthritis, left shoulder; M13.811 Other specified arthritis, right shoulder; M13.851 Other specified arthritis, right hip; K59.03 Drug induced constipation; I15.9 Secondary hypertension, unspecified; E66.01 Morbid (severe) obesity due to excess calories; Z88.2 Allergy status to sulfonamides; Z88.6 Allergy status to analgesic agent; Z88.3 Allergy status to other anti-infective agents; Z88.8 Allergy status to other drugs, medicaments and biological substances; Z91.018 Allergy to other foods; Z98.84 Bariatric surgery status; Z79.899 Other long term (current) drug therapy
CPT/HCPCS: 36415; 70450; 80048; 80053; 80076; 80307; 81001; 82550; 83605; 84439; 84443; 84450; 84481; 84703; 85025; 85610; 87040; 93005; 93010; 94799; 99285; J0360; J1644; J2060; J2270; J3490; J7030; J7120

== ENCOUNTER 2017-01-24 05:07 | Emergency (ER) | payer MEDICARE ==
[2017-01-24] MEDS ORDERED: LORAZEPAM INJ 2 MG/1 ML VIAL IM ONE ×6 (06:53→21:17)
[2017-01-24] MEDS ORDERED: HALOPERIDOL LACTATE INJ 5 MG/1 ML VIAL IM ONE ×2 (06:53→09:33)
[2017-01-24] MEDS ORDERED: DIPHENHYDRAMINE HCL 50 MG/ML VIAL IM ONE (06:53)
[2017-01-24 09:56] LABS: ABSOLUTE LYMPHOCYTES (AUTO) 0.9 10^3/uL (0.5-4.7); ABSOLUTE MONOCYTES (AUTO) 0.6 10^3/uL (0.1-1.4); ABSOLUTE NEUT (AUTO) 5.8 10^3/uL (1.7-8.2); BASOPHILS % (AUTO) 0.2 % (0-2); EOSINOPHILS % (AUTO) 0.4 % (0-6); HEMATOCRIT 39.9 % (36.0-47.0); HEMOGLOBIN 12.6 g/dL (12.0-15.5); HGB HCT DIFFERENCE -2.1; LYMPHOCYTES % (AUTO) 12.5 % (13-45); MEAN CORPUSCULAR HEMOGLOBIN 25.6 pg (27.0-33.4); MEAN CORPUSCULAR HGB CONC 31.4 g/dL (32.0-36.0); MEAN CORPUSCULAR VOLUME 81 fl (80-97); MONOCYTES % (AUTO) 7.8 % (3-13); RED CELL DISTRIBUTION WIDTH 17.7 % (11.5-14.0); SEGMENTED NEUTROPHILS % (AUTO) 79.1 % (42-78); WHITE BLOOD COUNT 7.4 10^3/uL (4.0-10.5)
[2017-01-24 10:29] LABS: ALANINE AMINOTRANSFERASE 31 U/L (9-52); ALBUMIN 4.3 g/dL (3.5-5.0); ALKALINE PHOSPHATASE 97 U/L (38-126); ANION GAP 18 (5-19); ASPARTATE AMINO TRANSFERASE 32 U/L (14-36); BILIRUBIN,TOTAL 0.8 mg/dL (0.2-1.3); BLOOD UREA NITROGEN 15 mg/dL (7-20); CARBON DIOXIDE 21 mmol/L (22-30); CHLORIDE 108 mmol/L (98-107); CREATININE RESULT 0.62 mg/dL (0.52-1.25); GLUCOSE 135 mg/dL (75-110); POTASSIUM 3.5 mmol/L (3.6-5.0); TOTAL PROTEIN 7.4 g/dL (6.3-8.2)
[2017-01-24 10:31] LABS: ALCOHOL < 10 mg/dL (NONE DETECTED)
[2017-01-24] MEDS ORDERED: CHLORPROMAZINE HCL INJ 25 MG/1 ML AMPULE IM ONE (10:41)
[2017-01-24 12:08] LABS: APPEARANCE,URINE SLIGHTLY-CLOUDY; BILIRUBIN,URINE NEGATIVE (NEGATIVE); GLUCOSE, URINE NEGATIVE (NEGATIVE); KETONES,URINE 20 mg/dL (NEGATIVE); LEUKOCYTE ESTERASE,URINE SMALL (NEGATIVE); NITRITE,URINE NEGATIVE (NEGATIVE); PROTEIN,URINE 30 mg/dL (NEGATIVE); URINE SPECIFIC GRAVITY 1.021; UROBILINOGEN,URINE NEGATIVE mg/dL (<2.0)
[2017-01-24 12:22] LABS: URINE BARBITURATES SCREEN NEGATIVE; URINE METHADONE SCREEN NEGATIVE; URINE OPIATES LOW NEGATIVE
[2017-01-24 12:29] LABS: URINE PHENCYCLIDINE SCREEN NEGATIVE
--- NOTE | 2017-01-24 14:29 | ER Document Report ---
ED General - General TRAVEL OUTSIDE OF THE [place] IN LAST 30 DAYS: No - HPI Patient complains to provider of: psychiatric evaluation <PILAR HERNANDEZ - Last Filed: 01/25/17 07:28> <SEBASTIÁN CONNOLLY - Last Filed: 01/26/17 10:13> - General Chief Complaint: Psych Problem Stated Complaint: BACK PAIN - HPI Notes: Patient presents for psychiatric evaluation according to the son at bedside patient has a history of psychiatric illness has a history of overdosing on her medications. States that the patient at this time is a little bit worse baseline states normally. Upon my evaluation patient continues to walk from her room to the bathroom patient redirected back to the room. Patient is complaining of lower back pain. Patient is able ambulate patient is able lie in bed flat move all 4 extremities. Patient however would answer any questions. Although patient was not questions whenever she stands up to leave she is easily redirectable back to the bed. Patient does state that it hurts for her to urinate. Upon review the patient's past medical records patient has a history of overdosing on stimulants. Patient also has a history of packing drugs into her rectum. Patient currently denies any of these actions. Patient has been admitted before medically for her overdoses. (PILAR HERNANDEZ) - Related Data Allergies/Adverse Reactions: cinnamon [Cinnamon] Allergy (Unknown, Verified 11/23/16 03:38) Swelling of Throat Sulfa (Sulfonamide Antibiotics) Allergy (Unknown, Verified 11/23/16 03:38) Swelling of hands and/or feet levofloxacin [From Levaquin] Allergy (Verified 11/23/16 03:38) metformin HCl [From Glucophage] Allergy (Verified 11/23/16 03:38) codeine [Codeine] Adverse Reaction (Unknown, Verified 11/23/16 03:38) Migraine morphine [Morphine] Adverse Reaction (Unknown, Verified 11/23/16 03:38) VOMITING trazodone [Trazodone] Adverse Reaction (Unknown, Verified 11/23/16 03:38) Past Medical History - Social History Smoking Status: Never Smoker Chew tobacco use (# tins/day): No Frequency of alcohol use: None Drug Abuse: None Family History: Reviewed & Not Pertinent, Other - Unavailable patient is aphasic Patient has suicidal ideation: No Patient has homicidal ideation: No - Past Medical History Cardiac Medical History: Denies: Hx Coronary Artery Disease, Hx Heart Attack, Hx Hypertension Pulmonary Medical History: Reports: Hx Asthma, Hx Pneumonia - recently Denies: Hx Bronchitis, Hx COPD Neurological Medical History: Denies: Hx Cerebrovascular Accident, Hx Seizures Renal/ Medical History: Denies: Hx Peritoneal Dialysis GI Medical History: Denies: Hx Hepatitis, Hx Hiatal Hernia, Hx Ulcer Musculoskeltal Medical History: Reports Hx Arthritis - shoulders, right hips Psychiatric Medical History: Reports: Hx Bipolar Disorder, Hx Depression Infectious Medical History: Denies: Hx Hepatitis Past Surgical History: Denies: Hx Hysterectomy, Hx Mastectomy, Hx Open Heart Surgery, Hx Pacemaker - Immunizations Hx Diphtheria, Pertussis, Tetanus Vaccination: Yes Hx Pneumococcal Vaccination: 11/29/12 <PILAR HERNANDEZ - Last Filed: 01/25/17 07:28> Review of Systems - Review of Systems Constitutional: No symptoms reported EENT: No symptoms reported Cardiovascular: No symptoms reported Respiratory: No symptoms reported Gastrointestinal: No symptoms reported Genitourinary: No symptoms reported Female Genitourinary: No symptoms reported Musculoskeletal: Back pain Skin: No symptoms reported Hematologic/Lymphatic: No symptoms reported Neurological/Psychological: Other - Jerica -: Yes All other systems reviewed and negative <PILAR HERNANDEZ - Last Filed: 01/25/17 07:28> Physical Exam - Vital signs Interpretation: Normal - General General appearance: Appears well, Alert - HEENT Head: Normocephalic, Atraumatic Eyes: Normal Pupils: PERRL - Respiratory Respiratory status: No respiratory distress Chest status: Nontender Breath sounds: Normal Chest palpation: Normal - Cardiovascular Rhythm: Regular Heart sounds: Normal auscultation Murmur: No - Abdominal Inspection: Normal, Morbidly Obese Distension: No distension Bowel sounds: Normal Tenderness: Nontender Organomegaly: No organomegaly - Back Back: Normal, Nontender - Extremities General upper extremity: Normal inspection, Nontender, Normal color, Normal ROM , Normal temperature General lower extremity: Normal inspection, Nontender, Normal color, Normal ROM , Normal temperature, Normal weight bearing. No: Elyse's sign - Neurological Neuro grossly intact: Yes - Psychological Associated symptoms: Angry, Anxious - Skin Skin Temperature: Warm Skin Moisture: Dry Skin Color: Normal <PILAR HERNANDEZ - Last Filed: 01/25/17 07:28> Course - Laboratory Result Diagrams: 01/24/17 09:47 01/24/17 09:47 <PILAR HERNANDEZ - Last Filed: 01/25/17 07:28> - Laboratory Result Diagrams: 01/24/17 09:47 01/24/17 09:47 <SEBASTIÁN CONNOLLY - Last Filed: 01/26/17 10:13> - Re-evaluation Re-evalutation: 01/24/17 14:29 Patient lab work shows some signs dehydration, concentrated urine elevated sodium. Tox screen is negative. Patient initially was placed in soft restraints however this was to no avail patient was given 5mg of Haldol to 50mg Benadryl 1mg of Ativan which did not clam the patient down patient was restrained in hard restraints was given additional Haldol and Ativan. Patient continues to fight the restraints. Patient was then given additional Ativan and Thorazine and was calm for approximately 50 minutes. Afterwards Patient continues to thrash around. I will continue supportive patient with benzodiazepines at this time will avoid any other antipsychotics or QT prolongation medications. Did perform a rectal examination no foreign body was found. KUB was negative for any foreign body Patient will take oral water do not see a need for IV hydration at this time Patient's presentation is consistent with presentations in the past as documented more likely drug overdose. Will continue to support patient at this time patient will be evaluated by psych. Per notes past patient has crushed of Sudafed and snorted it causing this type of reaction. Approximately patient had continued to state for approximately 36- 48 hours In the past poison control has recommended benzodiazepine treatment will continue to support (PILAR HERNANDEZ) - Vital Signs Vital signs: Temp Pulse Resp BP Pulse Ox 97.1 F 77 16 130/88 H 95 01/26/17 06:17 01/26/17 06:17 01/26/17 06:17 01/26/17 06:17 01/26/17 06:17 (PILAR HERNANDEZ) (SEBASTIÁN CONNOLLY) - Laboratory Laboratory results interpreted by me: 01/24/17 01/24/17 01/24/17 09:47 09:47 11:40 MCH 25.6 L MCHC 31.4 L RDW 17.7 H Seg Neutrophils % 79.1 H Lymphocytes % 12.5 L Sodium 147.0 H Potassium 3.5 L Chloride 108 H Carbon Dioxide 21 L Glucose 135 H Urine Protein 30 H Urine Ketones 20 H Ur Leukocyte Esterase SMALL H Salicylates < 1.0 L Acetaminophen < 10 L (PILAR HERNANDEZ) (SEBASTIÁN CONNOLLY) Discharge <PILAR HERNANDEZ - Last Filed: 01/25/17 07:28> <SEBASTIÁN CONNOLLY - Last Filed: 01/26/17 10:13> - Discharge Clinical Impression: Polypharmacy Altered mental status Qualifiers: Altered mental status type: stupor Qualified Code(s): R40.1 - Stupor Morbid obesity Qualifiers: Obesity type: due to excess calories Qualified Code(s): E66.01 - Morbid (severe ) obesity due to excess calories Condition: Stable Disposition: HOME, SELF-CARE Additional Instructions: Altered Mental Status An altered mental status is a change in the normal functioning of the brain. This alteration of function can range from minor decreased brain function with some forgetfulness and confusion to complete loss of consciousness and coma. There are many possible causes of an altered mental status and include brain injuries such as trauma or strokes, problems with oxygen supply to the brain, fever and infections of the brain and/or elsewhere in the body, metabolic abnormalities such as low or high blood sugar, overdoses or excessive medication ingestion, and mental and psychiatric illnesses. Sometimes the altered mental status resolves and a definite cause is not determined. If a cause for your altered mental status was found, it has likely been corrected. Your evaluation has not shown any condition that requires that you be admitted to the hospital. It is believed that you are safe to leave and return to your home. If you have a return of your symptoms, you should return for re-evaluation. FOLLOW-UP CARE: If you have been referred to a physician for follow-up care, call the physician s office for an appointment as you were instructed or within the next two days. If you experience worsening or a significant change in your symptoms, notify the physician immediately or return to the Emergency Department at any time for re-evaluation. We recommend that you follow-up at [facility]. Referrals: [facility] [Provider Group] - Follow up as needed
--- NOTE | 2017-01-24 14:42 | PSYCHOLOGICAL NOTE ---
Psych Note - Psych Note Psych Note: Patient is a 41 year old woman who presented via EMS this morning with her son due to c/o possible prescription pill overdose or drug abuse and disoriented. Patient has been observed this morning and multiple attempts have been made at evaluating the patient; however, she continues to not verbally engage in conversation. However, it is noted upon arrival she ambulated to the bathroom a number of times, and was able to navigate to and from. Patient is known to this clinician and Department for numerous prior episodes of similar etiology. Will track.
--- NOTE | 2017-01-24 17:42 | EKG REPORT ---
SEVERITY:- BORDERLINE ECG - SINUS ARRHYTHMIA, RATE [id number] PROBABLE LEFT ATRIAL ABNORMALITY : Confirmed by: Nina Dalal MD 24-Jan-2017 17:41:30
[2017-01-24] MEDS ORDERED: LORAZEPAM INJ 2 MG/1 ML VIAL IV ONE ×2 (17:56→22:48)
[2017-01-24] MEDS ORDERED: ZIPRASIDONE MESYLATE INJ/PF 20 MG SDV IM ONE (21:18)
--- NOTE | 2017-01-25 01:49 | ER Document Report ---
Doctor's Note Notes: 01/25/17 01:49 Patient has required multiple doses of IM Ativan throughout the evening. She continues to have alternating periods of resting in her bed, and then will intermittently try to get out of bed and pace the room. It is still difficult to redirect her. She is still not answering questions. She has remained tachycardic. I feel that she may benefit from some IV fluids and so when she is resting an IV will be placed and a bolus will be given. She will continue to be supported with benzodiazepines as needed. Disposition will be as per psychiatry.
[2017-01-25] MEDS ORDERED: NORMAL SALINE 1000 ML 1,000 ML IV ONE ×2 (01:52→06:34)
--- NOTE | 2017-01-25 10:52 | PSYCHOLOGICAL NOTE ---
Psych Note - Psych Note Psych Note: Conducted check in with patient who is a 41 year old female who is under IVC at [facility] due to suspected drug overdose of unknown intent. Patient has been in the Department now for a little over 24 hours, and continues to present with intermittent upset/yelling, and at times disoriented. Example, this morning she was sleeping and difficult to arouse. Patient's foot was given a light shake, which resulted in her tearfully moaning. Patient struggled to remain awake enough to verbally engage in conversation; however, did state she took Baclofen. Patient historically has presented with overdose of Baclofen, and possibly Sudafed. Patient's presentation is inconsistent with a Baclofen overdose aeb tachycardia, agitation, etc. Will track and attempt to consult again at a later time.
--- NOTE | 2017-01-25 15:34 | EKG REPORT ---
SEVERITY:- BORDERLINE ECG - SINUS TACHYCARDIA PROBABLE LEFT ATRIAL ABNORMALITY : Confirmed by: Goldy Anders MD 25-Jan-2017 15:33:30
--- NOTE | 2017-01-25 21:36 | ER Document Report ---
Doctor's Note Notes: 01/25/17 21:35 Provider note: Patient is arousable and she will converse. Compared to reports from the notes and Dr. Candelaria, the patient is significantly improved. She does state that she had taken an overdose of baclofen. Right now, she is feeling better. We will continue to observe her based upon her history and had altered she was when she came in. Currently, her vital signs are stable.
--- NOTE | 2017-01-26 09:57 | PSYCHOLOGICAL NOTE ---
Psych Note - Psych Note Psych Note: Patient is a 41 year old female who is under IVC for AMS, likely due to drug ingestion. Patient today is A&Ox4. She states she has no recollection of what happened. Patient states she is prescribed numerous medications which she is now concerned "may not mix well." Patient states occasionally she will take her Requip, and take her other pill, and forget she took a Requip and take another. Discussed with patient overusing her prescriptions, whether intentional or not. Discussed with patient drug treatment, whether she go outpatient or inpatient. Patient denies suicidal/homicidal ideations, intent, plan, or means. Patient does acknowledge that she has been to [facility] for 21 days for high doses of narcotic pain medications, which she states was prescribed to her by a provider who has since closed their practice. She states she does not need treatment, and that she needs to follow up with her providers, and attempt to get everyone on the same page with in regards to her prescribed medications because she is concerned there is an interaction. Patient denied suicidal/homicidal ideations, intent, plan, or means. Patient denies overusing her prescription pills in attempt to harm herself. Patient is A&O. Mood is euthymic with flat/odd affect. Patient denies suicidal/ homicidal ideations, intent, plan, or means. Patient denies A/V H; delusions not noted. Thought processes were organized. Conversational speech was low for rate, tone, and prosody. Intellectual abilities were estimated within average range. Attention and focus were fair. Insight, judgment, and impulse control were poor. Polysubtance Use Disorder Patient is psychiatrically cleared for discharge and recommended for rescind IVC. Patient appears to have resumed to her baseline functioning and is A&O. Patient denies abusing her prescription pills. Patient was strongly encouraged to follow up with SA assessment, and possibly treatment. Note, patient's 18 year old son is bedside and reports he feels she is at her baseline, and is in agreement that the patient should pursue SA treatment. Patient is able to verbalize that she does not use her prescription pills in attempt at harming herself. She additionally denies suicidal/homicidal ideations, intent, plan, or means. I consulted with Dr. Sidhu in regards to the care and management of this patient.
--- NOTE | 2017-01-26 10:11 | ER Document Report ---
Doctor's Note Notes: 01/26/17 10:09 Rounds: Chart reviewed and patient interviewed. Patient was being evaluated for altered mental status. She may have overdosed on an unknown substance. Since she arrived here nearly 48 hours ago, the patient has received 23 mg of Ativan IM along with some Haldol and other medications. This morning, she seems to be lucid and answers questions appropriately. Says she just "blacked out for a period of time". Vital signs are normal. All lab studies were essentially normal, including a completely negative urine drug screen. Patient appears to be medically stable for transfer or discharge. Mental health has assessed the patient feels she can be discharged for outpatient follow-up. Shayy Donald M.D.
[2017-01-26 12:45] VITALS: BP 128/89
== END 2017-01-26 11:09 | disposition home or self-care (01) ==
LOC: ER 05:07
DX: T42.8X1A Poisoning by antiparkinsonism drugs and other central muscle-tone depressants, accidental (unintentional), initial encounter (principal); R40.1 Stupor; E66.01 Morbid (severe) obesity due to excess calories; R00.0 Tachycardia, unspecified; M54.5 Low back pain; R30.0 Dysuria; Z88.2 Allergy status to sulfonamides; Z88.6 Allergy status to analgesic agent; Z78.1 Physical restraint status
CPT/HCPCS: 93005; 96376; 99285; 96372; 51701; 96374; 96375; 36415; 80307 ×4; 85025; 81025; 80053; 81001; 74000; 93010; J3230; J1200; J1630; J2060; J3486; J7030